=== PATIENT | female | born 1945 | race Caucasian/White ===

== ENCOUNTER → 2024-08-06 09:13 | Outpatient (REF) | payer MEDICARE, SELFPAY ==
[2024-08-06 10:42] LABS: ALT (SGPT) 24 U/L (0-35); AST (SGOT) 31 U/L (14-36); Albumin 4.6 g/dl (3.5-5.0); Alkaline Phosphatase 69 U/L (38-126); Blood Urea Nitrogen 17 mg/dl (7-17); Calcium 9.7 mg/dl (8.4-10.2); Carbon Dioxide 26 mmol/L (22-30); Chloride 98 mmol/L (98-107); Glucose 110 mg/dl (70-99); HDL Cholesterol 53 mg/dl; LDL Cholesterol, Calculated 59 mg/dl; Potassium 4.5 mmol/L (3.5-5.1); Sodium 135 mmol/L (135-145); Total Bilirubin 1.5 mg/dl (0.2-1.3); Total Cholesterol 140 mg/dl (50-199); Total Protein 8.5 g/dl (6.3-8.2); Triglyceride 140 mg/dl (10-149); Very Low Density Lipoprotein 28 mg/dl (0-30); eGFR > 60.00
[2024-08-06 11:02] LABS: Microalbumin, Random Urine 7.6 mg/dl (0.6-1.7); Microalbumin/creatinine Ratio 48.8 mg/g
[2024-08-06 12:35] LABS: Glycohemoglobin (HgbA1c) 6.3 % (4.0-5.6)
== END ==
LOC: REG 09:13
PROVIDERS: ATTENDING PHYSICIAN Family Medicine
DX: E11.36 Type 2 diabetes mellitus with diabetic cataract (principal); I10 Essential (primary) hypertension; E78.00 Pure hypercholesterolemia, unspecified; K21.9 Gastro-esophageal reflux disease without esophagitis
CPT/HCPCS: 36415; 80053; 80061; 82043; 82570; 83036

== ENCOUNTER → 2024-08-24 09:20 | Outpatient (REF) | payer MEDICARE, SELFPAY | LOC: RCS 09:20 | PROVIDERS: ATTENDING PHYSICIAN Internal Medicine Cardiovascular Disease; FAMILY PHYSICIAN Family Medicine | DX: I34.1 Nonrheumatic mitral (valve) prolapse (principal) | CPT/HCPCS: 93306 ==

== ENCOUNTER → 2024-09-09 07:03 | Outpatient (REF) | payer MEDICARE, SELFPAY | LOC: RCS 07:03 | PROVIDERS: ATTENDING PHYSICIAN Internal Medicine Cardiovascular Disease; FAMILY PHYSICIAN Family Medicine | DX: R07.89 Other chest pain (principal) | CPT/HCPCS: 78452; 93017; A9500 ==

== ENCOUNTER → 2025-01-27 08:33 | Outpatient (REF) | payer MEDICARE, SELFPAY ==
[2025-01-27 10:44] LABS: Glycohemoglobin (HgbA1c) 6.2 % (4.0-5.6)
[2025-01-27 10:54] LABS: Microalb - Urine Creatinine 123.700 mg/dl
[2025-01-27 10:58] LABS: Microalbumin, Random Urine 2.2 mg/dl (0.6-1.7)
[2025-01-27 11:12] LABS: ALT (SGPT) 25 U/L (0-35); AST (SGOT) 28 U/L (14-36); Albumin 4.7 g/dl (3.5-5.0); Alkaline Phosphatase 60 U/L (38-126); Blood Urea Nitrogen 27 mg/dl (7-17); Calcium 10.2 mg/dl (8.4-10.2); Carbon Dioxide 25 mmol/L (22-30); Chloride 100 mmol/L (98-107); Glucose 117 mg/dl (70-99); HDL Cholesterol 55 mg/dl; LDL Cholesterol, Calculated 86 mg/dl; Potassium 4.8 mmol/L (3.5-5.1); Sodium 135 mmol/L (135-145); Total Protein 8.9 g/dl (6.3-8.2); Very Low Density Lipoprotein 41 mg/dl (0-30); eGFR > 60.00
== END ==
LOC: REG 08:33
PROVIDERS: ATTENDING PHYSICIAN Family Medicine
DX: E11.36 Type 2 diabetes mellitus with diabetic cataract (principal); I10 Essential (primary) hypertension; E78.00 Pure hypercholesterolemia, unspecified; K21.9 Gastro-esophageal reflux disease without esophagitis
CPT/HCPCS: 36415; 80053; 80061; 82043; 82570; 83036

== ENCOUNTER → 2025-05-16 11:10 | Outpatient (REF) | payer MEDICARE, SELFPAY ==
[2025-05-16 12:12] LABS: Hematocrit 39.8 % (37.0-47.0); Hemoglobin 13.1 g/dL (12.0-16.0); Mean Corp Hgb Conc. 32.9 g/dL (33.0-37.0); Mean Corpuscular Volume 91.3 fL (81.0-99.0); Nucleated Red Blood Cells % 0 %; Platelet Count 272 10^3/uL (130-400); Red Cell Dist. Width 13.9 % (11.5-14.5)
[2025-05-18 07:11] LABS: Box Elder/Maple Tree <0.10 kU/L (<=0.34); Cat Epithelium/Dander <0.10 kU/L (<=0.34); Common/Short Ragweed <0.10 kU/L (<=0.34); Dermatophagoides pteronyssinus <0.10 kU/L (<=0.34); Hormodendrum <0.10 kU/L (<=0.34); Mountain Cedar Tree <0.10 kU/L (<=0.34); Mouse Epithelium <0.10 kU/L (<=0.34); Mugwort Weed <0.10 kU/L (<=0.34); Sheep Sorrel Weed <0.10 kU/L (<=0.34); Sycamore Tree <0.10 kU/L (<=0.34); White Ash Tree <0.10 kU/L (<=0.34); White Mulberry Tree <0.10 kU/L (<=0.34)
== END ==
LOC: REG 11:10
PROVIDERS: ATTENDING PHYSICIAN Internal Medicine; FAMILY PHYSICIAN Family Medicine
DX: R06.09 Other forms of dyspnea (principal)
CPT/HCPCS: 36415; 71046; 82785; 85025; 86003